=== PATIENT | female | born 1935 | race Two or more races ===

== ENCOUNTER 2016-07-25 13:19 | Emergency (ER) | payer OTHER ==
[~2016-07-25] VITALS: Ht 157.5 cm; Wt 64.9 kg
[2016-07-25] MEDS ORDERED: KETOROLAC TROMETH 60MG/2ML VIAL IM ONE (17:15)
[2016-07-25 18:35] VITALS: BP 184/73
== END 2016-07-25 19:34 | disposition home or self-care (01) ==
LOC: ER 13:19
DX: S50.01XA Contusion of right elbow, initial encounter (principal); R51 Headache; E11.9 Type 2 diabetes mellitus without complications; E78.5 Hyperlipidemia, unspecified; I10 Essential (primary) hypertension; W01.0XXA Fall on same level from slipping, tripping and stumbling without subsequent striking against object, initial encounter; Y93.89 Activity, other specified; Y99.8 Other external cause status; Y92.89 Other specified places as the place of occurrence of the external cause; Z85.3 Personal history of malignant neoplasm of breast
CPT/HCPCS: 70450; 72192; 73080; 96372; 99284; J1885

== ENCOUNTER 2018-02-14 01:45 | Emergency (ER) | payer OTHER ==
[~2018-02-14] VITALS: Ht 162.6 cm; Wt 63.5 kg
[2018-02-14 01:59] VITALS: BP 147/62
[2018-02-14 02:35] LABS: Basophils # (auto) 0 uL; Basophils % (auto) 0.6 % (0.0-2.0); Eosinophils # (auto) 0.1 uL; Eosinophils % (auto) 1.8 % (0.0-7.0); Hematocrit 35.9 % (36.0-46.0); Lymphocytes # (auto) 1.3 uL; Mean Corpuscular Hemoglobin 32.2 pg (28.0-32.0); Mean Corpuscular Hgb Conc. 33.5 g/dL (32.0-36.0); Mean Corpuscular Volume 96.1 fL (80.0-100.0); Monocytes # (auto) 0.4 uL; Monocytes % (auto) 5.7 % (0.0-12.0); Neutrophils # (auto) 4.6 uL; Neutrophils % (auto) 71.9 % (37.0-80.0); Platelet Count (auto) 276 10^3/uL (140-450); Red Blood Cells 3.74 10^6/uL (4.0-5.20); Red Cell Distribution Width 17.9 % (11.8-14.3); White Blood Cell 6.4 10^3/uL (4.4-10.8)
[2018-02-14 02:45] LABS: INR 0.99 (0.9-1.15); Prothrombin Time 10.6 sec (9.27-12.13)
[2018-02-14 02:55] LABS: Alanine Aminotransferase 23 U/L (13-56); Albumin 3.7 g/dL (3.4-5.0); Anion Gap 8 (5-15); Aspartate Aminotransferase 28 U/L (15-37); BUN/Creatinine Ratio 16.7; Blood Urea Nitrogen 32 mg/dL (7-18); Calcium 9.1 mg/dL (8.5-10.1); Carbon Dioxide 28 mmol/L (21-32); Chloride 109 mmol/L (98-107); GFR African American 32 mL/min; GFR Non-African American 26 mL/min; Glucose 137 mg/dL (74-106); Magnesium 2.2 mg/dL (1.6-2.6); Potassium 3.7 mmol/L (3.5-5.1); Sodium 145 mmol/L (136-145)
[2018-02-14 03:00] LABS: Alkaline Phosphatase 75 U/L (45-117); Bilirubin, Total 0.6 mg/dL (0.2-1.0); Total Protein 7.5 g/dL (6.4-8.2)
== END 2018-02-14 07:25 | disposition left against medical advice (07) ==
LOC: ER 01:45 → EDBD 01:45 → ER 07:25
DX: R11.2 Nausea with vomiting, unspecified (principal); Z53.21 Procedure and treatment not carried out due to patient leaving prior to being seen by health care provider
CPT/HCPCS: 36415; 80053; 83735; 83880; 84484; 85025; 85379; 85610; 85730

== ENCOUNTER 2021-02-20 19:19 | Inpatient (IN) | payer OTHER ==
[~2021-02-20] VITALS: Ht 154.9 cm; Wt 54.4 kg
[2021-02-20] MEDS ORDERED: SODIUM CHLORIDE 0.9% 1,000 ML IV ONE (20:15)
[2021-02-20] MEDS ORDERED: ACETAMINOPHEN 650 MG RECT SUPP PR ONE (20:45)
[2021-02-20 21:05] LABS: Urine Bacteria FEW /hpf (None Seen); Urine Blood 1+ /uL (Negative); Urine Hyaline Cast FEW /lpf (0 - 2); Urine Specific Gravity 1.015 (1.001-1.035); Urine WBC 11 /hpf (0 - 5)
[2021-02-20 22:32] LABS: Basophils # (auto) 0 10 ^3/uL (0-0.2); Basophils % (auto) 0.2 % (0.0-2.0); Eosinophils # (auto) 0 10 ^3/uL (0-0.8); Hematocrit 31.9 % (36.0-46.0); Hemoglobin 11.2 g/dL (12.2-16.2); Lymphocytes # (auto) 0.3 10 ^3/uL (0.4-5.4); Lymphocytes % (auto) 3.2 % (10.0-50.0); Mean Corpuscular Volume 94.2 fL (80.0-100.0); Monocytes # (auto) 0.4 10 ^3/uL (0-1.3); Monocytes % (auto) 3.9 % (0.0-12.0); Neutrophils # (auto) 9.2 10 ^3/uL (1.6-8.6); Neutrophils % (auto) 92.7 % (37.0-80.0); Red Blood Cells 3.38 10^6/uL (4.0-5.20); Red Cell Distribution Width 13.7 % (11.8-14.3)
[2021-02-20 22:41] LABS: Lactic Acid w/Reflex 2.2 mmol/L (0.4-2.0)
[2021-02-20 22:48] LABS: Albumin 2.7 g/dL (3.4-5.0); Calcium 8.3 mg/dL (8.5-10.1); Magnesium 2.1 mg/dL (1.6-2.6); Potassium 3.2 mmol/L (3.5-5.1)
[2021-02-20 22:52] LABS: BUN/Creatinine Ratio 21.8; Bilirubin, Total 0.7 mg/dL (0.2-1.0); CRP High Sensitivity 0.2 mg/dL (< 0.3); Total Protein 6.1 g/dL (6.4-8.2)
[2021-02-20 22:53] LABS: INR 1.12 (0.9-1.15); Partial Thromboplastin Time 27.7 sec (23.6-33.0)
[2021-02-21] MEDS ORDERED: PIPERACILLIN-TAZOB 3.375GM 100 ML IV ONE (00:30)
[2021-02-21] MEDS ORDERED: POTASSIUM CHL 20MEQ/100ML 100 ML IV ONE (00:45)
[2021-02-21] MEDS ORDERED: DEXTROSE (50%) 50ML SYRG IV PRN (00:45)
[2021-02-21] MEDS ORDERED: ACETAMINOPHEN 325 MG TAB PO PRN (00:45)
[2021-02-21] MEDS ORDERED: ONDANSETRON HCL 4 MG/2 ML VIAL IV PRN (00:45)
[2021-02-21] MEDS ORDERED: NITROGLYCERIN 0.4 MG SL TAB SL PRN (00:45)
[2021-02-21] MEDS ORDERED: MORPHINE SULFATE INJECTION 2 MG/ML SYRG IV PRN (00:45)
[2021-02-21] MEDS: ACCU-CHEK COMFORT CURVE STRIP VI SCH ×4 (06:44→22:59)
[2021-02-21] MEDS: InsuLIN REG 1unit/0.01ml Soln (100units/ml) SC SCH ×4 (06:44→22:00)
[2021-02-21] MEDS: LEVOTHYROXINE SODIUM 50 MCG TAB PO SCH (06:53)
[2021-02-21] MEDS: PANTOPRAZOLE 40 MG TAB PO SCH (09:30)
[2021-02-21] MEDS: cefTRIAXone 1GM/50ML D5W 50 ML IV SCH (09:30)
[2021-02-21 19:17] LABS: Calcium 8.4 mg/dL (8.5-10.1); Potassium 3.7 mmol/L (3.5-5.1)
[2021-02-21 19:19] LABS: BUN/Creatinine Ratio 21.6
[2021-02-21] MEDS ORDERED: DONEPEZIL HYDROCHLORIDE 5 MG TAB PO SCH (22:00)
[2021-02-21] MEDS ORDERED: ATORVASTATIN 20 MG TAB PO SCH (22:00)
[2021-02-22 02:37] VITALS: BP 155/33
[2021-02-22] MEDS ORDERED: LEVO50TA7 PO (03:00)
[2021-02-22] MEDS ORDERED: FURO20TA3 PO (03:00)
[2021-02-22] MEDS ORDERED: DONE1TAB88 PO (03:00)
[2021-02-22] MEDS ORDERED: GLIP5TAB12 PO (03:00)
[2021-02-22] MEDS ORDERED: ATOR20TA PO (03:00)
[2021-02-22] MEDS ORDERED: FAMO-12 PO (03:00)
[2021-02-22] MEDS ORDERED: GABA100C9 PO (03:00)
[2021-02-22 05:00] VITALS: BP 135/56
[2021-02-22] MEDS: LEVOTHYROXINE SODIUM 50 MCG TAB PO SCH (06:46)
[2021-02-22] MEDS: InsuLIN REG 1unit/0.01ml Soln (100units/ml) SC SCH ×3 (06:47→17:00)
[2021-02-22] MEDS: ACCU-CHEK COMFORT CURVE STRIP VI SCH ×3 (06:47→17:02)
[2021-02-22 07:07] LABS: Potassium 4.6 mmol/L (3.5-5.1)
[2021-02-22 07:13] LABS: BUN/Creatinine Ratio 22.6; Calcium 8.5 mg/dL (8.5-10.1)
[2021-02-22 07:17] LABS: Basophils # (auto) 0 10 ^3/uL (0-0.2); Basophils % (auto) 0.2 % (0.0-2.0); Eosinophils # (auto) 0.1 10 ^3/uL (0-0.8); Hematocrit 30.3 % (36.0-46.0); Hemoglobin 10.8 g/dL (12.2-16.2); Lymphocytes # (auto) 1.2 10 ^3/uL (0.4-5.4); Lymphocytes % (auto) 16.4 % (10.0-50.0); Mean Corpuscular Hemoglobin 33.4 pg (28.0-32.0); Mean Corpuscular Hgb Conc. 35.6 g/dL (32.0-36.0); Monocytes # (auto) 0.6 10 ^3/uL (0-1.3); Monocytes % (auto) 7.5 % (0.0-12.0); Neutrophils # (auto) 5.6 10 ^3/uL (1.6-8.6); Neutrophils % (auto) 74.9 % (37.0-80.0); Nucleated Red Blood Cells % 0.2 %; Red Blood Cells 3.22 10^6/uL (4.0-5.20); Red Cell Distribution Width 14.2 % (11.8-14.3); White Blood Cell 7.5 10^3/uL (4.4-10.8)
[2021-02-22] MEDS: PANTOPRAZOLE 40 MG TAB PO SCH (09:41)
[2021-02-22] MEDS: cefTRIAXone 1GM/50ML D5W 50 ML IV SCH (09:41)
[2021-02-22 13:00] VITALS: BP 124/57
[2021-02-22 17:00] VITALS: BP 158/76
== END 2021-02-22 18:00 | disposition home or self-care (01) | DRG 871 ==
LOC: EDUNIT# 19:19 → EDBD 19:19 → ER 19:23 → TELE 02-21 00:35 → TELE-WESTW 02-22 01:31 → WEST WING 02-22 01:37 → TELE-WESTW 02-22 01:43 → WEST WING 02-22 08:39
PROVIDERS: ADMIT Nurse Practitioner; ATTEND Family Medicine
DX: A41.9 Sepsis, unspecified organism (principal); G93.41 Metabolic encephalopathy; E43 Unspecified severe protein-calorie malnutrition; N39.0 Urinary tract infection, site not specified; E87.0 Hyperosmolality and hypernatremia; I13.0 Hypertensive heart and chronic kidney disease with heart failure and stage 1 through stage 4 chronic kidney disease, or unspecified chronic kidney disease; N17.9 Acute kidney failure, unspecified; N18.4 Chronic kidney disease, stage 4 (severe); F03.90 Unspecified dementia, unspecified severity, without behavioral disturbance, psychotic disturbance, mood disturbance, and anxiety; E87.6 Hypokalemia; E11.22 Type 2 diabetes mellitus with diabetic chronic kidney disease; E78.00 Pure hypercholesterolemia, unspecified; E78.5 Hyperlipidemia, unspecified; I50.9 Heart failure, unspecified; Z20.822 Contact with and (suspected) exposure to COVID-19; R29.6 Repeated falls; Z68.22 Body mass index [BMI] 22.0-22.9, adult
CPT/HCPCS: 36415; 36600; 70450; 71045; 80048; 80053; 81001; 82805; 82962; 83605; 83735; 83880; 84443; 85025; 85610; 85730; 86141; 87040; 87086; 87426; 93005; 93971; 96361; 96365; G0378; J0696; J1815; J2543; J3480

== ENCOUNTER 2022-01-10 14:18 | Inpatient (IN) | payer OTHER ==
[~2022-01-10] VITALS: Ht 154.9 cm; Wt 49.9 kg
[~2022-01-10 14:18] MED LIST: ATOR20TA PO; DONE1TAB88 PO; FAMO-12 PO; FURO20TA3 PO; GABA100C9 PO; GLIP5TAB12 PO; LEVO50TA7 PO
[2022-01-10 16:30] LABS: Basophils # (auto) 0 10 ^3/uL (0-0.2); Basophils % (auto) 0.8 % (0.0-2.0); Eosinophils # (auto) 0.2 10 ^3/uL (0-0.8); Eosinophils % (auto) 2.7 % (0.0-7.0); Hematocrit 35.3 % (36.0-46.0); Lymphocytes # (auto) 1.1 10 ^3/uL (0.4-5.4); Lymphocytes % (auto) 19.4 % (10.0-50.0); Mean Corpuscular Volume 93.9 fL (80.0-100.0); Monocytes # (auto) 0.4 10 ^3/uL (0-1.3); Monocytes % (auto) 7.5 % (0.0-12.0); Neutrophils % (auto) 69.6 % (37.0-80.0); Nucleated Red Blood Cells % 0.1 %; Red Blood Cells 3.76 10^6/uL (4.0-5.20); Red Cell Distribution Width 14.6 % (11.8-14.3); White Blood Cell 5.7 10^3/uL (4.4-10.8)
[2022-01-10 16:50] LABS: Alanine Aminotransferase 29 U/L (13-56); Anion Gap 7 (5-15); Aspartate Aminotransferase 40 U/L (15-37); BUN/Creatinine Ratio 18.8; Blood Urea Nitrogen 39 mg/dL (7-18); Carbon Dioxide 25 mmol/L (21-32); Chloride 117 mmol/L (98-107); GFR African American 29 mL/min; GFR Non-African American 24 mL/min; Glucose 103 mg/dL (74-106); Potassium 3.9 mmol/L (3.5-5.1); Sodium 149 mmol/L (136-145)
[2022-01-10 16:51] LABS: Alkaline Phosphatase 75 U/L (45-117); Bilirubin, Total 1.3 mg/dL (0.2-1.0); Total Protein 6.7 g/dL (6.4-8.2)
[2022-01-10] MEDS ORDERED: HYDROcodone-ACET 5/325MG TAB PO ONE (17:45)
[2022-01-10] MEDS ORDERED: SODIUM CHLORIDE 0.9% 1,000 ML IV ONE (18:45)
[2022-01-10] MEDS ORDERED: NITROGLYCERIN 0.4 MG SL TAB SL PRN (19:30)
[2022-01-10] MEDS ORDERED: ONDANSETRON HCL 4 MG/2 ML VIAL IV PRN (19:30)
[2022-01-10] MEDS ORDERED: ACETAMINOPHEN 325 MG TAB PO PRN (19:30)
[2022-01-10] MEDS ORDERED: hydrALAZINE HCL 20 MG/ML VL IV ONE (19:30)
[2022-01-10] MEDS ORDERED: DOCUSATE SOD 100 MG CAP PO PRN (19:30)
[2022-01-10] MEDS ORDERED: MORPHINE SULFATE INJ 2 MG/ml SYRG IV PRN (19:30)
[2022-01-10] MEDS ORDERED: cloNIDine HCL 0.1 MG TAB PO ONE (19:45)
[2022-01-10] MEDS ORDERED: D5W 5% 1,000 ML IV ONE (21:30)
[2022-01-10] MEDS: GABAPENTIN 100 MG CAP PO SCH (22:15)
[2022-01-10] MEDS ORDERED: amLODIPine BESYLATE 5 MG TAB PO ONE (22:15)
[2022-01-10] MEDS: HYDROcodone-ACET 5/325MG TAB PO PRN (22:15)
[2022-01-10] MEDS: DONEPEZIL HYDROCHLORIDE 5 MG TAB PO SCH (22:16)
[2022-01-11 01:00] VITALS: BP 132/46
[2022-01-11 05:00] VITALS: BP 145/51
[2022-01-11] MEDS: GABAPENTIN 100 MG CAP PO SCH ×3 (06:00→21:33)
[2022-01-11 06:58] LABS: Basophils # (auto) 0.1 10 ^3/uL (0-0.2); Eosinophils # (auto) 0.2 10 ^3/uL (0-0.8); Eosinophils % (auto) 3.5 % (0.0-7.0); Hematocrit 34.4 % (36.0-46.0); Hemoglobin 11.7 g/dL (12.2-16.2); Lymphocytes # (auto) 1.1 10 ^3/uL (0.4-5.4); Lymphocytes % (auto) 20.1 % (10.0-50.0); Mean Corpuscular Hemoglobin 32.3 pg (28.0-32.0); Mean Corpuscular Hgb Conc. 34.1 g/dL (32.0-36.0); Mean Corpuscular Volume 94.9 fL (80.0-100.0); Monocytes # (auto) 0.4 10 ^3/uL (0-1.3); Monocytes % (auto) 6.9 % (0.0-12.0); Neutrophils # (auto) 3.7 10 ^3/uL (1.6-8.6); Neutrophils % (auto) 68.5 % (37.0-80.0); Red Blood Cells 3.62 10^6/uL (4.0-5.20); Red Cell Distribution Width 14.4 % (11.8-14.3); White Blood Cell 5.4 10^3/uL (4.4-10.8)
[2022-01-11 07:00] LABS: BUN/Creatinine Ratio 22.2; Calcium 8.5 mg/dL (8.5-10.1); Potassium 3.4 mmol/L (3.5-5.1)
[2022-01-11] MEDS: LEVOTHYROXINE SODIUM 50 MCG TAB PO SCH (07:25)
[2022-01-11 07:50] VITALS: BP 166/57
[2022-01-11 09:00] VITALS: BP 140/52
[2022-01-11] MEDS: ATORVASTATIN 20 MG TAB PO SCH (09:00)
[2022-01-11] MEDS: ENOXAPARIN SOD 30 MG/0.3 ML SYRINGE SC SCH (09:01)
[2022-01-11] MEDS: MORPHINE SULFATE INJ 2 MG/ml SYRG IV PRN ×2 (09:02→16:27)
[2022-01-11] MEDS ORDERED: D5W/SOD CHL 0.45% 1,000 ML IV SCH (11:00)
[2022-01-11] MEDS ORDERED: POTASSIUM CHL 20 Meq TABLET PO ONE (16:00)
[2022-01-11] MEDS ORDERED: amLODIPine BESYLATE 5 MG TAB PO ONE (16:00)
[2022-01-11] MEDS ORDERED: HCTZ 25 MG TAB PO ONE (16:00)
[2022-01-11] MEDS: D5W 5% 1,000 ML IV SCH (17:39)
[2022-01-11] MEDS: DONEPEZIL HYDROCHLORIDE 5 MG TAB PO SCH (21:35)
[2022-01-11] MEDS: HYDROcodone-ACET 5/325MG TAB PO PRN (21:37)
[2022-01-11 22:00] VITALS: BP 167/73
[2022-01-12 05:00] VITALS: BP 154/75
[2022-01-12] MEDS: D5W 5% 1,000 ML IV SCH (05:17)
[2022-01-12] MEDS: HYDROcodone-ACET 5/325MG TAB PO PRN (05:28)
[2022-01-12] MEDS: GABAPENTIN 100 MG CAP PO SCH ×2 (05:30→14:15)
[2022-01-12 05:42] LABS: Calcium 7.9 mg/dL (8.5-10.1)
[2022-01-12 05:43] LABS: BUN/Creatinine Ratio 18.8
[2022-01-12] MEDS: LEVOTHYROXINE SODIUM 50 MCG TAB PO SCH (06:06)
[2022-01-12 09:00] VITALS: BP 132/50
[2022-01-12] MEDS: ENOXAPARIN SOD 30 MG/0.3 ML SYRINGE SC SCH (09:02)
[2022-01-12] MEDS: ATORVASTATIN 20 MG TAB PO SCH (09:02)
[2022-01-12] MEDS ORDERED: HCTZ 25 MG TAB PO SCH (10:00)
[2022-01-12] MEDS ORDERED: amLODIPine BESYLATE 5 MG TAB PO SCH (10:00)
[2022-01-12 11:16] VITALS: BP 132/50
[2022-01-12] MEDS ORDERED: HYDR-4798 PO (11:25)
[2022-01-12 11:27] VITALS: BP 132/50
[2022-01-12 13:00] VITALS: BP 126/44
[2022-01-12 17:00] VITALS: BP 148/63
== END 2022-01-12 18:17 | disposition hospice, home (50) | DRG 562 ==
LOC: ER 14:18 → TELE 19:25 → TELE-WESTW 23:46
PROVIDERS: ADMIT Nurse Practitioner Family; ATTEND Internal Medicine
DX: S42.211A Unspecified displaced fracture of surgical neck of right humerus, initial encounter for closed fracture (principal); G93.41 Metabolic encephalopathy; E87.0 Hyperosmolality and hypernatremia; I13.0 Hypertensive heart and chronic kidney disease with heart failure and stage 1 through stage 4 chronic kidney disease, or unspecified chronic kidney disease; I16.1 Hypertensive emergency; N17.9 Acute kidney failure, unspecified; E11.22 Type 2 diabetes mellitus with diabetic chronic kidney disease; Z20.822 Contact with and (suspected) exposure to COVID-19; E78.5 Hyperlipidemia, unspecified; F03.90 Unspecified dementia, unspecified severity, without behavioral disturbance, psychotic disturbance, mood disturbance, and anxiety; I50.9 Heart failure, unspecified; N18.32 Chronic kidney disease, stage 3b; W18.39XA Other fall on same level, initial encounter; Y93.89 Activity, other specified; Y92.89 Other specified places as the place of occurrence of the external cause; Z79.899 Other long term (current) drug therapy; Y99.8 Other external cause status; Z51.5 Encounter for palliative care
CPT/HCPCS: 36415; 70450; 71045; 72125; 72170; 73060; 76775; 80048; 80053; 85025; 87426; 96361; 96374; G0378